=== PATIENT | female | born 1970 | race Caucasian/White ===

== ENCOUNTER 2020-08-24 07:17 | Emergency (ER) | payer BC ==
[2020-08-24 07:30] VITALS: BP 153/94; PULSE 120
--- NOTE | 2020-08-24 07:38 | EDM.PDOC ---
ED HPI GENERAL MEDICAL PROBLEM - General Chief Complaint: Back Pain or Injury Stated Complaint: KIDNEY PAIN X 3 MONTHS Time Seen by Provider: 08/24/20 07:32 Source of Information: Reports: Patient History Limitations: Reports: No Limitations - History of Present Illness INITIAL COMMENTS - FREE TEXT/NARRATIVE: 50-year-old female presents to the ED complaining of left upper mid back pain that was particularly bad all night limiting her ability to sleep. Deep aching pain radiating around to the left hip anterior iliac spine area. Patient has been having recurrent pain in the L1-L2 nerve root distribution upper anterior lateral thigh to the knee and occasionally paresthesias below the knee into the dorsal foot. She seeks out chiropractor and massage therapy frequently. She was concerned that her kidney might be part of the problem which precipitated coming to the ED. Pain started last night limited her ability to sleep was also a motivating factor to come in and get checked. She states occasionally she will have difficulty with the first step or 2 when she gets up from a seated position on the left leg. Feels like is going to give out at times. Pain is not constant on the left anterior thigh it comes and goes. Currently no problems with taking a deep breath. No recent falls or injuries. Intermittent problems with left upper anterior thigh pain for 3 to 4 months. Onset: Other Onset Date: 08/24/20 Onset Time: 00:00 Duration: Hour(s): (Left upper mid back pain started around midnight and limited her ability to sleep.), Chronic (Chronic low back pain with radiculopathy in the L1-L2 nerve root distribution.), Constant, Getting Worse Location: Reports: Back (Low back pain), Radiates to ( with radiculopathy left anterior thigh in the distribution of L1) Quality: Reports: Ache, Other (Some numbness and tingling or paresthesias.) Severity: Moderate Improves with: Reports: Medication (Or aspirin usually helps the pain a little bit.) Worsens with: Reports: Movement Context: Denies: Activity, Exercise, Lifting, Sick Contact, Trauma, Other Associated Symptoms: Denies: No Other Symptoms, Confusion, Chest Pain, Cough, cough w sputum, Diaphoresis, Fever/Chills, Headaches, Loss of Appetite, Malaise, Nausea/Vomiting, Rash, Seizure, Shortness of Breath, Syncope, Weakness Treatments DIRECT CARE PROFESSIONAL: Reports: NSAIDS (Took Motrin yesterday morning and a baby aspirin around 4:00 this morning.) Left Back Pain Score (Numeric/FACES): 3 - Related Data Allergies Allergy/AdvReac Type Severity Reaction Status Date / Time rimantadine HCl Allergy Tremors Verified 08/24/20 07:30 [From Flumadine] Home Meds: Home Meds Ergocalciferol (Vitamin D2) [Vitamin D] 400 unit PO DAILY 07/08/15 [History] Inositol/Choline/Vit B Comp [Lipogen SG] 1 cap PO DAILY 07/08/15 [History] Magnesium 200 mg PO DAILY 07/08/15 [History] Nitrofurantoin Monohyd/M-Cryst [Macrobid 100 mg Capsule] 100 mg PO Q12HR #14 capsule 07/08/15 [Rx] Progesterone, Micronized [Progesterone] 100 mg PO DAILY 07/08/15 [History] Vit C/Hesperidin Mc/Hesp Cmplx [Peridin-C Tablet] 1 tab PO DAILY 07/08/15 [History] traMADol [Ultram] 50 mg PO Q8H PRN #10 tablet 07/08/15 [Rx] Meloxicam 15 mg PO DAILY #20 tablet 08/24/20 [Rx] Past Medical History Other HEENT History: wears glasses Musculoskeletal History: Reports: Back Pain, Chronic Other Musculoskeletal History: bone spurs Other Endocrine/Metabolic History: thyroid nodule. has been having throid levels checked-monitoring for hyperthyroidism Social & Family History - Living Situation & Occupation Living situation: Reports: Occupation: Employed ED ROS GENERAL - Review of Systems Review Of Systems: See Below Constitutional: Denies: Fever, Chills, Malaise, Weakness, Fatigue, Decreased Appetite, Weight Loss HEENT: Reports: No Symptoms Respiratory: Reports: No Symptoms Cardiovascular: Reports: No Symptoms Endocrine: Reports: Fatigue GI/Abdominal: Reports: No Symptoms : Reports: Other (And was noted to be very dark in color 1 day last week. Currently on her menstrual cycle for the last 3 days.) Musculoskeletal: Reports: Back Pain (With intermittent pain left anterior lateral thigh down to the knee.) Skin: Reports: No Symptoms Neurological: Reports: Paresthesia (Occasionally a numbness tingling sensation down to the dorsal aspect of her left foot.) Psychiatric: Reports: No Symptoms Hematologic/Lymphatic: Reports: No Symptoms Immunologic: Reports: No Symptoms ED EXAM,LOWER BACK PAIN/INJURY - Physical Exam Exam: See Below Exam Limited By: No Limitations General Appearance: Alert, WD/WN, No Apparent Distress, Other (Temperature is 36.0. Heart rate reported to be 120 at the bedside however when I examined her it was around 100. Respiratory to 16 with a pulse oximetry of 99% BP [id number].) Eye Exam: Bilateral Eye: Normal Inspection Respiratory/Chest: No Respiratory Distress, Lungs Clear, Normal Breath Sounds, No Accessory Muscle Use Cardiovascular: Normal Peripheral Pulses, Regular Rate, Rhythm, No Edema, No Gallop, No Murmur GI/Abdominal: Normal Bowel Sounds, Soft, Non-Tender, No Organomegaly, No Mass, Pelvis Stable Back Exam: Normal Inspection, Other (Patient has some mild paraspinal muscle spasm thoracic 7 8 level on the left side with rib head subluxation suspected at the thoracic 7 level. Lumbar spine reveals mild tenderness throughout the left lower back over the facet joints with minimal paraspinal muscle spasm. Straight leg raising is normal. Reflexes normal in the lower extremities.) Extremities: Normal Inspection, Normal Range of Motion, Non-Tender, No Pedal Edema, Other (Fall unopposed range of motion of both hips mild pain both upper sacroiliac joints perhaps a little worse on the left as compared to the right. Greater trochanteric bursa is normal.). No: Pedal Edema Neurological: Alert, Normal Mood/Affect, Normal Dorsiflexion, CN II-XII Intact, Normal Gait, No Motor/Sensory Deficits, Oriented x 3, Straight Leg Raise (L) (Normal), Straight Leg Raise (R). No: Difficulty Walking ( normal), Other DTR - Lower Extremities: 2+: Ankle (R), Ankle (L), 3+: Knee (R), Knee (L) Psychiatric: Normal Affect, Normal Mood Skin Exam: Warm, Dry, Intact, Normal Color, No Rash Course - Vital Signs Last Recorded V/S: Last Vital Signs Temp 36.0 C L 08/24/20 07:25 Pulse 120 H 08/24/20 07:25 Resp 16 08/24/20 07:25 BP 153/94 H 08/24/20 07:25 Pulse Ox 99 08/24/20 07:25 - Orders/Labs/Meds Labs: Laboratory Tests 08/24/20 Range/Units 07:41 Urine Color Yellow (Yellow) Urine Appearance Clear (Clear) Urine pH 5.5 (5.0-8.0) Ur Specific [place] 1.020 (1.005-1.030) Urine Protein Negative (Negative) Urine Glucose (UA) Negative (Negative) Urine Ketones Negative (Negative) Urine Occult Blood 2+ H (Negative) Urine Nitrite Negative (Negative) Urine Bilirubin Negative (Negative) Urine Urobilinogen 0.2 (0.2-1.0) Ur Leukocyte Esterase Negative (Negative) Urine RBC 5-10 H (0-5) /hpf Urine WBC 0-5 (0-5) /hpf Ur Squamous Epith Cells 0-5 (0-5) /hpf Amorphous Sediment Few H (NOT SEEN) /hpf Urine Bacteria Few (FEW) /hpf Urine Mucus Moderate H (FEW) /hpf - Radiology Interpretation Free Text/Narrative:: 50-year-old female presents to the ED for evaluation of left upper mid back pain that started yesterday and became much worse overnight to the point that she could not sleep. She has been having chronic low back pain with intermittent paresthesias and discomfort in the left anterior lateral thigh in the distribution of the L2-L3 nerve root. Occasionally she has felt some numbness tingling in the dorsal aspect of her left foot. Examination reveals suspect rib head subluxation rating thoracic 7 left upper back. Normal lordotic curvature of the lumbar spine. Mild paraspinal muscle tenderness left lower back over the facet joints. Minimal muscle spasm at this time. Both SI joints have inflammation on exam right worse than left upper two thirds. Hip exam normal. Neuro exam normal. Plan urinalysis to be obtained. She will have CT thoracic and lumbar spine. - Re-Assessments/Exams Free Text/Narrative Re-Assessment/Exam: 08/24/20 08:45 Urinalysis shows 2+ occult blood 5-10 RBCs per high-power field but the patient is currently menstruating. No white blood cells or signs of infection identified. CT scan of the lumbar spine spine was compared to previous MRI done 09 September 2015. Findings are that of L4-5 slight posterior disc space narrowing. Very slight circumferential disc bulge is noted. Posterior disc maintains a mostly planar margin. No central canal stenosis or neuroforaminal stenosis is seen. Mild degenerative apophyseal changes seen. At L5-S1 mild diffuse posterior disc bulge is seen. Posterior disc is slightly narrowed. No neuroforaminal stenosis or discrete central canal stenosis is seen. Mild degenerative apophyseal changes seen. Other discs are felt to be well-maintained with no acute fracture or subluxation evident. Impression is mild degenerative change at L4-5 and L5-S1 studies findings are fairly stable to previous MRI lumbar spine study. CT of the thoracic spine was compared to a thoracic spine study of 08/07/2012. Findings degenerative changes noted at the C6-C7 level with disc space narrowing and mild posterior spurring. The vertebral body heights are maintained. There is slight disc space narrowing at the T10-11 level with disc calcification which continues into the superior vertebral body and is an interval change from the previous spine study. No focal disc herniation is seen. No central canal stenosis or neural foraminal stenosis is seen. Very minimal scoliosis is noted on the reconstructed frontal view. Assessment degenerative change at C6-7 level and at the T10-11 level as described above. Minimal scoliosis. Findings were discussed with the patient. At this point time she has no significant neural foramina encroachment. I believe her current pain syndrome i.e. numbness tingling burning sensation anterior left thigh is due to meralgia paresthetica. Suggested follow-up with Dr. Valentin orthopedic surgeon if she continues to have problems with this as injection with local anesthetic when she has a current problem will confirm the diagnosis and it usually improves with steroid injection. Plan will be to start her on meloxicam 15 mg once daily to be used for the next 8 to 10 days to relieve pain and inflammation in her lower back and SI joints. Recommended chiropractic manipulation of subluxed rib head left upper back. She will try and start a regular exercise program such as swimming etc. which would strengthen her core muscles and improve inflammation in the lower back and SI joints. She will follow up with her primary care physician if any further problems continue. Departure - Departure Time of Disposition: 09:35 Disposition: Home, Self-Care 01 Condition: Fair Clinical Impression: Lower thoracic back pain, Sacroiliitis, Degenerative disc disease, thoracic - Discharge Information *PRESCRIPTION DRUG MONITORING PROGRAM REVIEWED*: Not Applicable *COPY OF PRESCRIPTION DRUG MONITORING REPORT IN PATIENT ANTONIETA: Not Applicable Prescriptions: Meloxicam 15 mg PO DAILY #20 tablet Instructions: Acute Back Pain, Adult, Back Injury Prevention Referrals: PCP,Not In Area [Primary Care Provider] - Forms: ED Department Discharge Additional Instructions: Evaluation in the emergency room today in regards to development of left upper mid back pain in the mid thorax last night which interfered with your ability to sleep. Recurrent numbness tingling burning discomfort left anterior thigh is felt to be due to meralgia paresthetica which is compression of a nerve that comes out just inside your front of your pelvis called the anterior iliac spine. This can be treated once diagnosis is confirmed by numbing the area with a local anesthetic you get complete relief of the pain steroid injection will often take the pain away completely long-term. Follow-up with Dr. Valentin- orthopedic surgeon in clinic if treatment is desired. Office number is CT of your thoracic back shows degenerative disc disease with calcification at the C6-C7 level which correlates with your left upper back pain. However on exam there is a rib pad that is slightly subluxed at the thoracic 7 level and would benefit from chiropractic manipulation. Diffuse low back pain is that of degenerative disc disease noted on lumbar spine CT essentially unchanged from MRI done in 2016. Degenerative changes at lumbar 4 5 and lumbar 5 -S1 levels. Exam also reveals tenderness throughout both upper sacroiliac joints on exam which recall sacroiliitis. Getting back into a regular exercise program as we discussed would alleviate a good portion of the low back pain. Urinalysis proved to be normal other than a few red cells in the urine from menses. No signs of infection. Both kidneys appear normal on CT of the back exam. Suggest use of meloxicam 15 mg tab once daily every morning for the next 8 to 10 days and then I gave you an extra 10 tablets to be used as needed in the future. This will relieve inflammation in both the upper and lower back and should give you some pain relief. Sepsis Event Note (ED) - Evaluation Sepsis Screening Result: No Definite Risk - Focused Exam Vital Signs: Vital Signs Temp Pulse Resp BP Pulse Ox 08/24/20 07:25 36.0 C L 120 H 16 153/94 H 99
--- NOTE | 2020-08-24 08:39 | CT ---
CT lumbar spine Technique: Multiple axial sections through the lumbar spine were obtained. Reconstructed coronal and sagittal images were obtained. Comparison: Prior MRI lumbar spine study of 09/09/15. Findings: L4-5: Slight posterior disc space narrowing is noted at L4-5. Very slight circumferential disc bulge is noted. Posterior disc maintains a mostly planar margin. No central canal stenosis or neural foraminal stenosis is seen. Mild degenerative apophyseal change is seen. L5-S1: Mild diffuse posterior disc bulge is seen. Posterior disc is slightly narrowed. No neural foraminal stenosis or discrete central canal stenosis is seen. Mild degenerative apophyseal change is seen. Other disks are felt to be maintained. No acute fracture or subluxation is appreciated. Impression: 1. Mild degenerative change at L4-5 and L5-S1. Findings are fairly stable to previous MRI lumbar spine study. 2. No additional abnormality is appreciated. Diagnostic code #2
--- NOTE | 2020-08-24 08:48 | CT ---
CT thoracic spine Technique: Multiple axial sections through the thoracic spine were obtained. Reconstructed coronal and sagittal images were obtained. Comparison: Prior thoracic spine study of 08/07/12. Findings: Degenerative change is noted at C6-7 with disc space narrowing and mild posterior spurring. Other vertebral body heights are maintained. There is slight disc space narrowing at T10-11 with disc calcification which continues into the superior vertebral body and is an interval change from previous spine study. No focal disc herniation is seen. No central canal stenosis or neural foraminal stenosis is seen. Very minimal scoliosis is noted on the reconstructed frontal view. Impression: 1. Degenerative change at C6-7 and at T10-11 as described above. 2. Minimal scoliosis. 3. Nothing acute is seen. Diagnostic code #2
== END 2020-08-24 09:33 | disposition home or self-care (01) ==
LOC: JD.ED 07:17
DX: M51.34 Other intervertebral disc degeneration, thoracic region (principal); M46.1 Sacroiliitis, not elsewhere classified; Z88.8 Allergy status to other drugs, medicaments and biological substances
CPT/HCPCS: 72128; 72128-26; 72131; 72131-26; 81001; 99284-25